=== PATIENT | male | born 1995 | race Two or more races ===

== ENCOUNTER 2017-11-14 14:40 | Emergency (ER) | payer OTHER ==
[~2017-11-14] VITALS: Ht 170.2 cm; Wt 59.0 kg
[2017-11-14 14:40] VITALS: BP 98/62
== END 2017-11-14 15:54 ==
LOC: ER 14:43
DX: L02.414 Cutaneous abscess of left upper limb (principal); L03.114 Cellulitis of left upper limb; F17.210 Nicotine dependence, cigarettes, uncomplicated
CPT/HCPCS: A4606; A6402; A6407; Z7610